=== PATIENT | male | born 1980 | race African-American/Black ===

== ENCOUNTER 2023-10-17 12:37 | Emergency (ER) | payer OTHER ==
[~2023-10-17 12:37] MED LIST: Amiodarone 150 MG/3 ML VIAL ONE; EPINEPHrine 1 MG/10 ML Abboject SYRINGE ONE; Magnesium 5 GM/10 ML VIAL ONE; Sodium Bicarb 50 MEQ/50 ML Abboject 8.4% SYRINGE ONE
[2023-10-17 14:24] LABS: Base Excess-Venous -9.7 mmol/L (-2.0 to 3.0); Bicarbonate (HCO3v) 23.9 mmol/L (22.0-28.0); CO2 Tension (PvCO2) 93.3 mmHg (42.0-51.0); Chloride 106 mmol/L (98-107); Potassium 4.8 mmol/L (3.5-5.1); Sodium 150 mmol/L (138-145); vO2 Saturation-calc 63.4 % (60.0-85.0)
[2023-10-17 14:25] LABS: Calcium, Ionized 1.19 mmol/L (1.15-1.33); Hemoglobin - Calc 15.7 g/dL (14.0-18.0); T. Carbon Dioxide 26.7 mmol/L (22.0-28.0)
[2023-10-17 14:27] LABS: %Neutrophils 57.8 % (42.0-75.0); Hemoglobin 14.5 g/dL (14.0-18.0); Manual Diff?? NO; Mean Corpuscular HGB CONC 29.6 g/dL (32.0-36.0); Mean Corpuscular Hemoglobin 25.1 pg (27.0-31.0); Mean Corpuscular Volume 84.9 fl (78.0-98.0); Mean Platelet Volume 5.1 fL (7.4-10.4); Platelet Count 133 10x3/uL (130-400); RBC Distribution Width 13.2 % (11.5-14.5); Red Blood Cell (RBC) Count 5.77 mill/uL (4.70-6.10); White Blood Cell (WBC) Count 13.8 10x3/uL (4.8-10.8)
[2023-10-17 14:28] LABS: #Basophils 0.2 thou/uL (0.0-0.2); #Lymphocytes 5.2 thou/uL (1.20-3.40); #Monocytes 0.4 thou/uL (0.11-0.59); %Basophils 1.2 % (0.0-1.0); %Eosinophils 0.2 % (0.0-10.0); %Lymphocytes 37.7 % (21.0-51.0)
[2023-10-17 14:30] LABS: Albumin 3.4 g/dL (3.5-5.0); Anion Gap 31 mmol/L (10-20); Bilirubin, Total 0.6 mg/dL (0.2-1.2); Calc. Creatinine Clearance 0 mL/min (70-130); Calcium 9.6 mg/dL (7.6-10.4); Carbon Dioxide 18 mmol/L (22-29); Chloride 103 mmol/L (98-107); Estimated GFR 29; Globulin 3.2 g/dL (2.4-3.5); Glucose 141 mg/dL (70-105); Potassium 4.4 mmol/L (3.5-5.1); Protein, Total 6.6 g/dL (6.0-8.3); Sodium 148 mmol/L (136-145)
[2023-10-17 14:31] LABS: Alkaline Phosphatase 52 U/L (40-110)
[2023-10-17 14:33] LABS: BUN (Urea Nitrogen) 20 mg/dL (8.9-20.6)
[2023-10-17 14:34] LABS: ALT (SGPT) 446 U/L (8-55); AST (SGOT) 292 U/L (5-34); Troponin I 0.131 ng/mL (< 0.028)
[2023-10-17 14:40] LABS: Acetaminophen Less than 10 mcg/mL (Less than 10); Alcohol Less than 10.0 mg/dL (Less than 10); Salicylate Less than 8.0 mg/dL (Less than 8.0)
== END 2023-10-17 15:40 | disposition expired ==
LOC: EDBD 12:37 → EDSEX 12:37 → NAV ERS 12:37
DX: I46.9 Cardiac arrest, cause unspecified (principal)
CPT/HCPCS: 80053; 80307; 82330; 82435; 82803; 84132; 84295; 84484; 85014; 85025; 92950; J0171; J0282; J3475